=== PATIENT | male | born 1985 | race Caucasian/White ===

== ENCOUNTER 2024-03-10 20:31 | Emergency (ER) | payer OTHER, SELFPAY ==
[2024-03-10] VITALS (11 sets, daily range): BP systolic 131–163; BP diastolic 91–108; PULSE 77–85; RESP 14–21; TEMP 36.9; O2SAT 91–98; BMI 34.0
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
[2024-03-10] MEDS: ondansetron 2 mg/ML SDV 2 mL 4 MG IVP (20:46)
[2024-03-10] MEDS: morphine 4 mg/mL SDV 1 mL 2 MG IVP (20:47)
--- NOTE | 2024-03-10 20:56 | PC.NURSE ---
C collar applied in triage.
--- NOTE | 2024-03-10 21:39 | PC.NURSE ---
Paige APPLICATION INFRASTRUCTURE ENGINEER instructed this nurse to place Aragon catheter.
[2024-03-10] MEDS: HYDROmorphone 1 mg/mL INJ 1 mL IVP (21:41)
[2024-03-10 21:50] LABS: Basophils # 0.1 10^3/uL (0.0-0.1); Basophils % 1.2 %; Eosinophils # 0.4 10^3/uL (0.0-0.8); Eosinophils % 4.8 %; Hematocrit 42.6 % (37-53); Lymphocytes # 2.1 10^3/uL (0.8-4.8); Lymphocytes % 28.3 %; Mean Corpuscular HGB Conc 35.7 g/dL (30-55); Mean Corpuscular Hemoglobin 31.9 pg (27-33); Mean Corpuscular Volume 89.5 fl (82-101); Mean Platelet Volume 9.4 fL (7.4-10.4); Monocytes # 0.5 10^3/uL (0.2-0.9); Monocytes % 6.3 %; Neutrophils # 4.37 10^3/uL (1.8-7.7); Neutrophils % 58.5 %; Nucleated Red Blood Cells % 0 %; Platelet Count 261 10^3/cmm (157-399); Red Blood Count 4.76 10^6/uL (3.85-5.65); White Blood Count 7.48 10^3/uL (3.29-11.43)
[2024-03-10 22:00] LABS: Alanine Aminotransferase 77 U/L (0-41); Albumin Level 4.6 g/dL (3.5-5.2); Alkaline Phosphatase 68 U/L (40-130); Anion Gap 19.3 (5-19); Aspartate Amino Transferase 73 U/L (0-40); Blood Urea Nitrogen 8 mg/dL (6-20); Calcium 8.4 mg/dL (8.5-10.5); Carbon Dioxide 24 mmol/L (22-29); Chloride 100 mmol/L (98-107); Creatinine Clr Calc Pharmacy 129.8617; Glomerular Filtration Rate 93.5 mL/min (90-130); Glucose 107 mg/dL (65-115); Osmolality Calculated 289 mOsm/kg (285-295); Potassium 3.3 mmol/L (3.5-5.1); Sodium 140 mmol/L (136-145); Total Bilirubin 0.4 mg/dL (0.15-1.2); Total Protein 7.6 g/dL (6.6-8.7)
[2024-03-10 22:26] LABS: Charge for UA Resulting for Rev
[2024-03-10 22:26] LABS: Alcohol Level 323 mg/dL (0-10)
[2024-03-10 22:29] LABS: Bilirubin Urine Negative (Negative); Blood Urine Negative (Negative); Glucose Urine UA Negative (Normal); Ketones Urine Negative (Negative); Leukocyte Esterase Urine Negative (Negative); Nitrate Urine Negative (Negative); Protein Urine Negative (Negative); Specific Gravity, Urine 1.004 (1.005-1.030); Urine Appearance Clear (CLEAR); Urine Color Yellow (Yellow); Urobilinogen Urine 0.2 mg/dL (Negative); pH Urine 6.5 (5-7)
--- NOTE | 2024-03-10 23:08 | PC.NURSE ---
Report was called by Esther Murdock RN to Ann Rico RN at [facility] in [place].
[2024-03-10] MEDS: HYDROmorphone 1 mg/mL INJ 1 mL 0.5 MG IVP (23:22)
== END 2024-03-10 23:42 ==
PROVIDERS: Emergency Provider Nurse Practitioner Family
DX: S01.01XA Laceration without foreign body of scalp, initial encounter (principal); W16.122A Fall into natural body of water striking bottom causing other injury, initial encounter
CPT/HCPCS: 51702; 70450; 72125; 72128; 72131; 80053; 80307; 81003; 81015; 85025; 96374; 96375; 96376; 99285; J1170; J2270; J2405